=== PATIENT | female | born 1975 | race Caucasian/White ===

== ENCOUNTER 2022-05-21 22:25 | Emergency (ER) | payer SELFPAY ==
[2022-05-21] MEDS ORDERED: Flagyl 500 MG PO ONE (23:11)
[2022-05-21] MEDS ORDERED: Vibramycin 100 MG PO ONE (23:11)
[2022-05-21] MEDS ORDERED: HYPERRAB 300 UNIT/ML 5 ML VIAL IM STA (23:12)
[2022-05-21] MEDS ORDERED: Rabavert 2.5 UNITS IM ONE (23:12)
[2022-05-21] MEDS ORDERED: Vibramycin 100 MG ONE (23:40)
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
[2022-05-21] MEDS ORDERED: Flagyl 500 MG ONE (23:41)
[2022-05-22 00:31] VITALS: BP 110/73; PULSE 65; O2SAT 98
== END 2022-05-22 00:31 | disposition home or self-care (01) ==
LOC: ED 22:25
DX: S80.871A Other superficial bite, right lower leg, initial encounter (principal); W54.0XXA Bitten by dog, initial encounter; Y93.01 Activity, walking, marching and hiking; Y92.830 Public park as the place of occurrence of the external cause; J44.9 Chronic obstructive pulmonary disease, unspecified; Z28.310 Unvaccinated for COVID-19
CPT/HCPCS: 90375; 90471; 90675; 96372; 99283; A9270-GY

== ENCOUNTER 2024-01-17 10:17 | Emergency (ER) | payer BC ==
[2024-01-17 10:29] VITALS: TEMP 98.2
[2024-01-17] MEDS ORDERED: DUONEB 0.5-3 MG/3 ml Neb IH ONE (10:47)
[2024-01-17] MEDS: solu-MEDROL 125 MG, Sterile H2O 10 ml 2 ML IV ONE (10:49)
[2024-01-17] MEDS ORDERED: solu-MEDROL ONE (10:49)
[2024-01-17] MEDS ORDERED: Sterile H2O 10 ml IJ ONE (10:49)
[2024-01-17] MEDS: DUONEB 0.5-3 MG/3 ml Neb IH ONE (10:51)
[2024-01-17 10:54] LABS: Absolute Neutrophil Ct (ANC) 5.35 x10^3/uL (1.4-6.9); BASOPHIL % 0.3 % (0.0-0.4); Basophil (Absolute #) 0.03 x10^3/uL (0-0.4); Eosinophil % 0.7 % (0.00-5.0); Eosinophil (Absolute #) 0.07 x10^3/uL (0-0.5); Hematocrit 40.2 % (35-47); Hemoglobin 13.9 g/dL (12.0-16.0); IMMATURE GRAN # 0.02 x10^3u/L (0.00-0.03); IMMATURE GRAN % 0.2 % (0.00-0.4); Lymphocytes % 37.5 % (24.0-44.0); Mean Cell Volume 83.8 fL (78-100); Mean Corpuscular Hgb Concent. 34.6 g/dL (32-36); Mean Platelet Volume 11.7 fL (7.5-11.0); Monocytes % 7.1 % (0.0-12.0); Neutrophil % 54.2 % (36.0-66.0); Platelet Count 255 x10^3/uL (150-450); White Blood Count 9.9 x10^3/uL (4.0-10.5)
--- NOTE | 2024-01-17 11:02 | XRAY ---
Indication: Cough. Comparison: None Portable chest hyperinflated with blunting right costophrenic angle favoring minimal pleural effusion/thickening. Remaining heart, lungs, and bony thorax unremarkable.
[2024-01-17 11:11] LABS: ALBUMIN 4.2 g/dL (3.5-5.0); ANION GAP 10.4 MEQ/L (5-15); BILIRUBIN,TOTAL 0.7 mg/dL (0.2-1.3); Calcium 9.9 mg/dL (8.4-10.2); Creatinine 1 0.68 mg/dL (0.52-1.04); Potassium 3.9 mmol/L (3.5-5.1); Total Protein 7.3 g/dL (6.3-8.2)
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
[2024-01-17 11:19] VITALS: PULSE 78
[2024-01-17 12:01] LABS: INFLUENZA A NEGATIVE (NEGATIVE); INFLUENZA B NEGATIVE (NEGATIVE); RESPIRATORY SYNCTIAL VIRUS NEGATIVE (NEGATIVE); SARS-CoV-2 Xpert Express NEGATIVE (NEGATIVE)
[2024-01-17 12:05] VITALS: BP 112/81; RESP 22
[2024-01-17 12:34] VITALS: O2SAT 97
== END 2024-01-17 12:53 | disposition home or self-care (01) ==
LOC: ED 10:17
DX: J44.1 Chronic obstructive pulmonary disease with (acute) exacerbation (principal); R05.1 Acute cough; Z79.52 Long term (current) use of systemic steroids; Z79.899 Other long term (current) drug therapy
CPT/HCPCS: 0241U; 36000; 36415; 71045; 80053; 83605; 83735; 84484; 85025; 87040; 93041; 94640; 96374; 99284; J2919; A9270-GY

== ENCOUNTER 2024-01-22 18:16 | Emergency (ER) | payer BC ==
[2024-01-22 18:57] VITALS: TEMP 98.3
[2024-01-22 19:31] VITALS: RESP 16
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
[2024-01-22] MEDS ORDERED: TYLENOL 325 MG ONE (19:51)
[2024-01-22] MEDS: TYLENOL 325 MG PO ONE (19:53)
[2024-01-22 20:11] VITALS: BP 120/89; PULSE 79; O2SAT 95
--- NOTE | 2024-01-23 09:04 | XRAY ---
Indication: Pain following fall 2 days ago. Comparison: None 3 view right knee demonstrates osteopenia, minimal medial joint space narrowing, tiny medial tibial plateau bone island, and tiny nonspecific effusion. No other bony, articular, or soft tissue abnormalities.
== END 2024-01-22 20:12 | disposition home or self-care (01) ==
LOC: ED 18:16
DX: S80.01XA Contusion of right knee, initial encounter (principal); W19.XXXA Unspecified fall, initial encounter; M25.561 Pain in right knee; Z76.0 Encounter for issue of repeat prescription; Z79.899 Other long term (current) drug therapy
CPT/HCPCS: 73562; 99283; A9270-GY